=== PATIENT | female | born 1985 | race Native Hawaiian/Other Pacific Islander ===

== ENCOUNTER 2020-02-08 16:36 | Inpatient (IN) | payer OTHER ==
[~2020-02-08] VITALS: Ht 162.6 cm; Wt 85.5 kg
[2020-02-08 18:11] LABS: PLATELET COUNT 208 K/uL (152-353)
[2020-02-08 18:24] LABS: POTASSIUM 3.7 mmol/L (3.6-5.2)
[2020-02-08 18:34] LABS: PARTIAL THROMBOPLASTIN TIME 24.9 SECONDS (24.5-33.6)
[2020-02-08 19:00] VITALS: BP 149/98
[2020-02-08 19:41] VITALS: BP 151/103; TEMP 97.6; Ht 162.6 cm; Wt 85.5 kg
[2020-02-08 20:00] VITALS: BP 131/88
[2020-02-08 21:00] VITALS: BP 126/82
[2020-02-08 22:00] VITALS: BP 126/88
[2020-02-08 23:00] VITALS: BP 113/85
[2020-02-09] VITALS (15 sets, daily range): BP systolic 102–132; BP diastolic 63–92; TEMP 97.3–97.8
[2020-02-09 06:14] LABS: PLATELET COUNT 200 K/uL (152-353)
[2020-02-09 06:27] LABS: POTASSIUM 4.1 mmol/L (3.6-5.2)
[2020-02-10] VITALS: BP 137/95; TEMP 97.6
[2020-02-10 05:35] LABS: POTASSIUM 3.9 mmol/L (3.6-5.2)
[2020-02-10 08:00] VITALS: BP 109/67; TEMP 97.5
[2020-02-10 12:00] VITALS: BP 107/72; TEMP 97.7
[2020-02-10 15:00] VITALS: BP 114/79; TEMP 98.3
[2020-02-10 20:00] VITALS: BP 126/80; TEMP 97.8
[2020-02-11] VITALS: BP 112/69; TEMP 97.5
[2020-02-11 03:49] VITALS: BP 100/56; TEMP 97.7
[2020-02-11 05:10] LABS: POTASSIUM 3.1 mmol/L (3.6-5.2)
[2020-02-11 08:00] VITALS: BP 118/77; TEMP 97.6
[2020-02-11 11:17] LABS: PLATELET COUNT 185 K/uL (152-353)
[2020-02-11 12:00] VITALS: BP 123/90; TEMP 97.7
[2020-02-11 16:00] VITALS: BP 114/77; TEMP 97.9
[2020-02-11 20:26] VITALS: BP 128/89; TEMP 97.6
[2020-02-12] VITALS: BP 111/90; TEMP 97.9
[2020-02-12 03:51] VITALS: BP 115/70; TEMP 98.1
[2020-02-12 05:53] LABS: POTASSIUM 4.5 mmol/L (3.6-5.2)
[2020-02-12 08:00] VITALS: BP 136/97; TEMP 97.2
[2020-02-12 12:00] VITALS: BP 112/69; TEMP 98.1
[2020-02-12 16:00] VITALS: BP 115/82; TEMP 97.4
[2020-02-12 20:10] VITALS: BP 126/86; TEMP 98.6
[2020-02-13] VITALS: BP 113/83; TEMP 98.7
[2020-02-13 04:57] LABS: POTASSIUM 3.6 mmol/L (3.6-5.2)
[2020-02-13 08:00] VITALS: BP 110/80; TEMP 97.9
[2020-02-13 12:13] VITALS: BP 96/64; TEMP 98.4
[2020-02-13 16:00] VITALS: BP 103/73; TEMP 97.8
[2020-02-13] MEDS ORDERED: ONDA4TAB3 PO (17:47)
== END 2020-02-13 19:34 | disposition home or self-care (01) | DRG 179 ==
LOC: MED/SURG 16:36
PROVIDERS: ADMIT Internal Medicine
DX: U07.1 COVID-19 (principal); E87.6 Hypokalemia; R09.02 Hypoxemia; R06.09 Other forms of dyspnea
CPT/HCPCS: 36415; 36600; 80053; 81000; 82550; 82805; 83605; 84484; 85027; 85379; 85610; 85730; 87040; 93005; 94760; J0456; J0696; J1100; J1650; J2405

== ENCOUNTER 2020-11-08 11:36 | Outpatient (CLI) | payer OTHER ==
[~2020-11-08 11:36] MED LIST: ONDA4TAB3 PO
== END 2020-11-08 21:33 | disposition home or self-care (01) ==
LOC: LABW 11:36
PROVIDERS: ATTEND Obstetrics & Gynecology
DX: Z34.82 Encounter for supervision of other normal pregnancy, second trimester (principal)

== ENCOUNTER 2021-01-03 08:18 | Outpatient (CLI) | payer OTHER ==
[2021-01-03 10:55] LABS: PLATELET COUNT 189 K/uL (152-353)
== END 2021-01-03 23:00 | disposition home or self-care (01) ==
LOC: LABW 08:18
PROVIDERS: ATTEND Obstetrics & Gynecology
DX: Z36.89 Encounter for other specified antenatal screening (principal)
CPT/HCPCS: 36415; 82728; 82951; 85027; 86592; 86701; 86702; 87389

== ENCOUNTER 2021-02-02 16:47 | Outpatient (CLI) | payer OTHER ==
[2021-02-02 17:12] LABS: PLATELET COUNT 200 K/uL (152-353)
[2021-02-02 17:42] LABS: POTASSIUM 3.8 mmol/L (3.6-5.2); SODIUM 137 mmol/L (136-145)
== END 2021-02-02 22:37 | disposition home or self-care (01) ==
LOC: LABW 16:47
PROVIDERS: ATTEND Obstetrics & Gynecology
DX: R03.0 Elevated blood-pressure reading, without diagnosis of hypertension (principal)
CPT/HCPCS: 36415; 80053; 82570; 83615; 84155; 85027

== ENCOUNTER 2021-02-12 14:56 | Outpatient (CLI) | payer OTHER ==
[2021-02-12 15:15] LABS: PLATELET COUNT 194 K/uL (152-353)
[2021-02-12 15:27] LABS: POTASSIUM 3.5 mmol/L (3.6-5.2)
== END 2021-02-12 19:52 | disposition home or self-care (01) ==
LOC: LABW 14:56
PROVIDERS: ATTEND Obstetrics & Gynecology
DX: O16.9 Unspecified maternal hypertension, unspecified trimester (principal)
CPT/HCPCS: 36415; 80053; 83615; 84550; 85027

== ENCOUNTER 2021-02-21 11:38 | Outpatient (CLI) | payer OTHER ==
[2021-02-21 11:54] LABS: PLATELET COUNT 204 K/uL (152-353)
[2021-02-21 12:12] LABS: POTASSIUM 3.7 mmol/L (3.6-5.2)
== END 2021-02-21 23:37 | disposition home or self-care (01) ==
LOC: LABW 11:38
PROVIDERS: ATTEND Obstetrics & Gynecology
DX: O13.3 Gestational [pregnancy-induced] hypertension without significant proteinuria, third trimester (principal); O09.523 Supervision of elderly multigravida, third trimester; Z3A.34 34 weeks gestation of pregnancy
CPT/HCPCS: 36415; 80053; 84550; 85027

== ENCOUNTER 2021-02-22 12:43 | Outpatient (CLI) | payer OTHER | END 2021-02-22 22:07 | disposition home or self-care (01) | LOC: LAB 12:43 | PROVIDERS: ATTEND Obstetrics & Gynecology | DX: O13.3 Gestational [pregnancy-induced] hypertension without significant proteinuria, third trimester (principal); O09.523 Supervision of elderly multigravida, third trimester; Z3A.34 34 weeks gestation of pregnancy | CPT/HCPCS: 84156 ==